=== PATIENT | male | born 1985 | race Two or more races ===

== ENCOUNTER 2024-06-14 23:52 | Emergency (ER) | payer SELFPAY ==
[2024-06-15] MEDS ORDERED: ACYC-108 PO (04:47)
== END 2024-06-15 01:51 | disposition left against medical advice (07) ==
LOC: ER 06-15
DX: T14.8XXA Other injury of unspecified body region, initial encounter (principal); Z53.21 Procedure and treatment not carried out due to patient leaving prior to being seen by health care provider; X58.XXXA Exposure to other specified factors, initial encounter; Y93.89 Activity, other specified; Y92.89 Other specified places as the place of occurrence of the external cause; Y99.8 Other external cause status

== ENCOUNTER 2024-06-15 04:20 | Emergency (ER) | payer SELFPAY ==
[~2024-06-15] VITALS: Ht 182.9 cm; Wt 99.8 kg
[2024-06-15 04:33] VITALS: BP 130/82; TEMP 97.9; O2SAT 100
[2024-06-15] MEDS ORDERED: ACYC-108 PO (04:47)
[2024-06-17 20:08] LABS: CHLAMYDIA TRACHOMATIS NAA Negative (Negative); NEISSERIA GONORRHOEAE NAA Negative (Negative)
== END 2024-06-15 06:10 | disposition home or self-care (01) ==
LOC: ER 04:21
DX: L03.116 Cellulitis of left lower limb (principal); B00.1 Herpesviral vesicular dermatitis
CPT/HCPCS: 87491; 87591